=== PATIENT | female | born 1980 | race Caucasian/White ===

== ENCOUNTER 2022-02-28 01:51 | Emergency (ER) | payer BC ==
[~2022-02-28] VITALS: Ht 162.6 cm; Wt 77.1 kg
[2022-02-28] MEDS ORDERED: MORPHINE SULFATE INJ 2 MG/ML DISP.SYRIN IV ONE (02:00)
[2022-02-28] MEDS ORDERED: ONDANSETRON HCL/PF 4 MG/2 ML VIAL IVP ONE (02:00)
[2022-02-28] MEDS ORDERED: IV NS 0.9% 500 ML BAG IV ONE (02:00)
[2022-02-28] MEDS ORDERED: MORPHINE SULFATE INJ 4 MG/ML DISP.SYRIN ONE (02:06)
[2022-02-28] MEDS ORDERED: ONDANSETRON HCL/PF 4 MG/2 ML VIAL ONE (02:06)
--- NOTE | 2022-02-28 02:06 | NUR ---
PATIENT BIBFRIEND C/O RIGHT SIDE ABD PAIN RAD TO RIGHT FLANK, AFTER WAKING UP X 30 MIN AGO. PATIENT IS A/O X 4, RR EVEN, NONLABORED BREATHING. PATIENT AMBULATED TO ER BED 03. PATIENT VSS, AFEBRILE. 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
--- NOTE | 2022-02-28 02:19 | NUR ---
URINE COLLECTED AND SENT TO LAB
--- NOTE | 2022-02-28 02:20 | NUR ---
RAC #18G S/L; PATENT AND INTACT. BLOOD COLLECTED AND SENT TO LAB
[2022-02-28 02:22] LABS: BASOPHILS # (AUTO) 0.1 K/uL (0.0-0.2); EOSINOPHILS % (AUTO) 2.1 % (0.0-6.0); HEMATOCRIT 38 % (33-45); LYMPHOCYTES # (AUTO) 4.3 K/uL (0.8-4.8); LYMPHOCYTES % (AUTO) 32.9 % (20.0-44.0); MEAN CORPUSCULAR HGB CONC 34 g/dl (31.0-36.0); MEAN CORPUSCULAR VOLUME 85 fL (82-100); MONOCYTES # (AUTO) 1.1 K/uL (0.1-1.30); MONOCYTES % (AUTO) 8.4 % (2.0-12.0); NEUTROPHILS # (AUTO) 7.2 K/uL (1.8-8.9); NEUTROPHILS % (AUTO) 55.6 % (43.0-81.0); PLATELET COUNT (AUTO) 308 K/uL (150-450); RED BLOOD CELL COUNT(AUTO) 4.49 MIL/uL (4.0-5.2)
[2022-02-28] MEDS ORDERED: IV NS 0.9% 250 ML IV ONE (02:24)
[2022-02-28] MEDS ORDERED: CT SWABBABLE VALVE TRANS SET 1 EA INFUS.SET MC ONE (02:24)
[2022-02-28] MEDS ORDERED: IOHEXOL-300 100 ML VIAL IV ONE (02:24)
[2022-02-28 02:26] LABS: CREATININE 0.9 mg/dL (0.6-1.3); POTASSIUM 3.6 mmol/L (3.5-5.1)
--- NOTE | 2022-02-28 02:33 | NUR ---
PT TAKEN TO CT VIA MIGUEL
[2022-02-28 02:34] LABS: BILIRUBIN,URINE NEGATIVE (NEGATIVE); COLOR,URINE YELLOW (YELLOW); LEUKOCYTE ESTERASE ,URINE NEGATIVE (NEGATIVE); NITRITE, URINE NEGATIVE (NEGATIVE); PH,URINE 5.5 (5.0-8.0); PROTEIN,URINE NEGATIVE (NEGATIVE); UGLUCOSE NEGATIVE (NEGATIVE); UROBILINOGEN,URINE 0.2 EU/dL (0.2)
[2022-02-28] MEDS ORDERED: KETOROLAC TROMETHAMINE INJ 60 MG/2 ML VIAL IM ONE (03:30)
[2022-02-28] MEDS ORDERED: KETOROLAC TROMETHAMINE 15 MG/ML VIAL ONE ×2 (03:35→06:23)
--- NOTE | 2022-02-28 04:48 | NUR ---
GOT HOLD OF STATRAD. STILL ON QUE TO BE READ
[2022-02-28] MEDS ORDERED: KETO10TA2 PO (06:03)
[2022-02-28] MEDS ORDERED: ONDA4TAB11 PO (06:03)
[2022-02-28] MEDS ORDERED: ALFU10TA10 PO (06:03)
--- NOTE | 2022-02-28 06:20 | NUR ---
Patient discharged to home in stable condition. Written and verbal after care instructions given. Patient verbalizes understanding of instruction. IV removed. Catheter intact and site benign. Pressure and 4x4 applied to site. No bleeding noted. PT ambulatory with a steady gait
[2022-02-28] MEDS ORDERED: KETOROLAC TROMETHAMINE INJ 30 MG/ML VIAL IV ONE (06:30)
[2022-02-28 06:32] VITALS: BP 127/81
== END 2022-02-28 06:34 | disposition home or self-care (01) ==
LOC: ER 01:56
DX: R10.31 Right lower quadrant pain (principal); M54.6 Pain in thoracic spine
CPT/HCPCS: 36415; 74177; 80048; 81003; 84703; 85025; 96372; 96374; 96375; 99285; J1885 ×2; J2270; J2405; J7040; J7050; Q9967